=== PATIENT | male | born 1975 | race African-American/Black ===

== ENCOUNTER → 2019-09-19 | Emergency (ER) | payer MEDICAID ==
[~2019-09-19] VITALS: Ht 180.3 cm; Wt 91.6 kg
[2019-09-19 13:39] VITALS: BP 162/60
--- NOTE | 2019-09-19 13:58 | NUR ---
Pt eloped from facility. MD kam
== END | disposition left against medical advice (07) ==
LOC: ER 13:37
DX: Z53.21 Procedure and treatment not carried out due to patient leaving prior to being seen by health care provider (principal); S99.912A Unspecified injury of left ankle, initial encounter; E11.9 Type 2 diabetes mellitus without complications; F31.9 Bipolar disorder, unspecified; X58.XXXA Exposure to other specified factors, initial encounter; Y93.89 Activity, other specified; Y92.89 Other specified places as the place of occurrence of the external cause; Y99.8 Other external cause status